=== PATIENT | male | born 1945 | race Caucasian/White ===

== ENCOUNTER 2017-07-06 21:10 | Emergency (ER) | payer OTHER, MEDICARE ==
[~2017-07-06] VITALS: Ht 172.7 cm; Wt 88.5 kg
[2017-07-06 21:41] LABS: ABSOLUTE BASOPHIL COUNT 0 /CUMM (0.0-0.2); ABSOLUTE EOSINOPHIL COUNT 0.3 /CUMM (0.0-0.7); ABSOLUTE LYMPH COUNT 2.1 /CUMM (1.2-3.4); ABSOLUTE MONOCYTE COUNT 0.8 /CUMM (0.10-0.60); BASOPHIL % 0.4 % (0.0-2.0); EOSINOPHIL % 2.8 % (0-5); GRANULOCYTE % 67.9 % (42.2-75.2); HEMATOCRIT 46.3 % (42-52); MEAN CORPUSCULAR HGB 30.6 PG (27.0-31.0); MEAN CORPUSCULAR HGB CONC 33.6 G/DL (33.0-37.0); MEAN PLATELET VOLUME 8.6 FL (7.4-10.4); PLATELET COUNT 244 /CUMM (130-400); RBC DISTRIBUTION WIDTH 13.6 % (11.5-14.5); RED BLOOD CELL CT 5.09 /CUMM (4.70-6.10); WHITE BLOOD CELL COUNT 10.2 /CUMM (4.8-10.8)
--- NOTE | 2017-07-06 23:06 | ED CARDIAC/CP/PALPITATIONS ---
History of Present Illness General Chief Complaint: Chest Pain Stated Complaint: " CHEST PAIN ALLAFTERNOON, BP 180/80" Source: patient, family, old records Exam Limitations: no limitations Vital Signs & Intake/Output Vital Signs & Intake/Output Vital Signs Date Time Temp Pulse Resp B/P B/P Pulse O2 O2 Flow FiO2 Mean Ox Delivery Rate 07/06 2319 70 20 172/90 96 Room Air 07/06 2114 97.9 83 20 181/85 97 Room Air ED Intake and Output 07/07 0000 07/06 1200 Intake Total Output Total Balance Patient 195 lb Weight Allergies Coded Allergies: No Known Allergies (07/06/17) Reconcile Medications Hydrochlorothiazide 25 MG TABLET 1 TAB PO DAILY htn Triage Note: PT TO TRIAGE C/O CP SINCE THIS AFTERNOON S/P EATING TUNA FISH SANDWICH, BUT PAIN HAS PERSISTED. DENIES RADIATING PAIN, DENIES SOB. PT ALSO C/O HIGH BLOOD PRESSURE AT HOME. BP 181/85 IN TRIAGE. DENIES CARDIAC HX. Triage Nurses Notes Reviewed? yes Onset: Abrupt Duration: day(s): (1), constant Timing: recent history Quality/Severity: mild, aching, burning Location: central Radiation: no radiation Activities at Onset: eating Nitro Today/Relief: no nitro taken today Aspirin Today: no aspirin today Associated Symptoms: denies HPI: 72-year-old male presents to the ER for evaluation complaining of central nonradiating chest pain associated with frequent belching since approximately 1: 00 this afternoon after eating a tuna fish sandwich. He denies radiation of pain shortness of breath or pain with inspiration. No nausea no vomiting. He is not taken anything for his symptoms. He took his blood pressure was elevated and presents to the ER. He did have soup for dinner which she states after eating soup made the symptoms worse. No back pain and arm pain abdominal pain. He denies tobacco or alcohol use. No history of cardiac disease. Symptoms are not worse with exertion. (Christen AMAYA,Manjeet) Past History Travel History Traveled to [place] past 21 day No Medical History Any Pertinent Medical History? 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 No (Manjeet Moreira) Review of Systems Review of Systems Constitutional: Reports: see HPI. Comments Review of systems: See HPI, All other systems negative. Constitutional, no chills no fever, HEENT: no sore throat no congestion Cardiovascular: chest pain , no palpitation Skin: no rashes, no change in skin Respiratory: No dyspnea no cough no sputum no hemoptysis GI: No nausea no vomiting, no diarrhea, no bloating/constipation Muscle skeletal: No joint pain, no back pain, no neck pain, Neurologic: , no headache Heme/endocrine: No bruising Immunology: No lymphadenopathy (Manjeet Moreira) Physical Exam Physical Exam General Appearance: well developed/nourished, no apparent distress, alert, awake , comfortable Cardiovascular: regular rate/rhythm Comments: Well-developed well-nourished person in no acute distress HEENT: Normal EENT exam; PERRL, EOMI. HEAD is atraumatic. moist mucous membranes. Neck: Supple, normal range of motion Back: Nontender, no CVA tenderness. Full range of motion Cardiovascular: Regular rate and rhythms no murmurs Respiratory: Chest nontender.There were no bony deformities, no asymmetry. No respiratory distress. Patient speaking in full complete sentences. Breath sounds clear to auscultation bilaterally: NO W/R/R Abdomen: Soft, nontender nondistended, no appreciable organomegaly. Normal bowel sounds. No rebound/guarding, No ascites. Extremity: No edema, full range of motion of extremities Neuro: Alert oriented x3, motor sensory normal, There were no obvious focal neurologic abnormalities. Skin: No appreciable rash on exposed skin, skin is warm and dry. Psych: Mood and affect is normal, memory and judgment is normal. Core Measures ACS in differential dx? Yes CVA/TIA Diagnosis No Sepsis Present: No Sepsis Focused Exam Completed? No (Manjeet Moreira) Progress Differential Diagnosis: AMI, atrial fibrillation, myocarditis, pericarditis, pneumonia, pneumothorax, PUD/GERD, unstable angina Plan of Care: Orders Procedure Date/time Status TROPONIN LEVEL 07/070 Complete EKG 07/07 29 Active TROPONIN LEVEL 07/07 2123 Complete COMPREHENSIVE METABOLIC PANEL 07/07 2123 Complete CBC WITHOUT DIFFERENTIAL 07/07 2123 Complete EKG 07/06 2112 Active Laboratory Tests 07/07/17 0017: Troponin I < 0.01 07/06/172128: Anion Gap 10, Estimated GFR 59 L, BUN/Creatinine Ratio 13.3, Glucose 144 H, Calcium 9.3, Total Bilirubin 0.5, AST 21, ALT 24, Alkaline Phosphatase 43, Troponin I < 0.01, Total Protein 6.6, Albumin 3.6, Globulin 3.0, Albumin/ Globulin Ratio 1.2, CBC w Diff NO MAN DIFF REQ, RBC 5.09, MCV 91.0, MCH 30.6, MCHC 33.6, RDW 13.6, MPV 8.6, Gran % 67.9, Lymphocytes % 20.7, Monocytes % 8.2, Eosinophils % 2.8, Basophils % 0.4, Absolute Granulocytes 7.0 H, Absolute Lymphocytes 2.1, Absolute Monocytes 0.8 H, Absolute Eosinophils 0.3, Absolute Basophils 0 Patient medicated with GI cocktail labs ordered old records reviewed Review evaluation patient reports symptoms have migrated to the epigastric region GI cocktail however it is improved discussed with the plan of care will get a repeat troponin EKG at 12:30 otherwise resting in no acute distress at this time. Patient frequently belching in the room 110 I discussed with the patient and his repeat labs he denies any chest pain at this time, he continues to belch discussed with him plan of care he will follow- up with cardiology primary care prescription for hydrochlorothiazide will be provided. Diagnostic Imaging: Viewed by Me: Radiology Read. Discussed w/RAD: Radiology Read. Radiology Impression: PATIENT: GILA YUNG PRESENT AGE: 72 PATIENT ACCOUNT NO: [id number] : 44 LOCATION: [facility] ORDERING PHYSICIAN: Manjeet AMAYA SERVICE DATE: 07/06/174 EXAM TYPE: RAD - XRY- PORTABLE CHEST XRAY EXAMINATION: XR PORTABLE CHEST CLINICAL INFORMATION: Chest pain COMPARISON: None TECHNIQUE: Portable frontal view of the chest was obtained. FINDINGS: The lungs are well expanded. There is no focal consolidation , edema, or effusion. No pneumothorax. The cardiomediastinal silhouette is within normal limits. No acute osseous abnormality. IMPRESSION: No acute pulmonary findings. DICTATED BY: Santy BOWLING,Shalom DATE/TIME DICTATED:2336 THREAD MARKER:RAD.[email or web address] DATE/TIME TRANSCRIBED:07/06/172336 CONFIDENTIAL, DO NOT COPY WITHOUT APPROPRIATE AUTHORIZATION. <Electronically signed in Other Vendor System> SIGNED BY: Santy BOWLING,Shalom 07/06/17 7298 Initial ED EKG: normal intervals, normal p-waves, normal QRS complex, normal sinus rhythm Repeat EKG: unchanged Rhythm Strip: normal sinus rhythm (Manjeet Moreira) Departure Departure Time of Disposition: 108 Disposition: HOME OR SELF CARE Condition: Stable Clinical Impression Primary Impression: Atypical chest pain Referrals: Pelon BOWLING,Tray Armstrong MD,Marcello Morrow (PCP/Family) Additional Instructions: Hydrochlorothiazide as directed. Follow-up with frozen meat cutter Dr. luo. Ona diet clear liquids advance as tolerated. Return to the emergency room anytime sooner with any concerns. Departure Forms: Customer Survey General Discharge Information Prescriptions: Current Visit Scripts Hydrochlorothiazide 1 TAB PO DAILY #30 TAB (Manjeet Moreira) PA/TAIL EDGER Co-Sign Statement Statement: ED Attending supervision documentation- [X] I saw and evaluated the patient. I have also reviewed all the pertinent lab results and diagnostic results. I agree with the findings and the plan of care as documented in the PA's/TAIL EDGER's documentation. [X] I have reviewed the ED Record and agree with the PA's/TAIL EDGER's documentation. [] Additions or exceptions (if any) to the PAs/TAIL EDGER's note and plan are summarized below: [] (Lalitha BOWLING,Italo Mtz) Critical Care Note Critical Care Note Critical Care Time: non-applicable (Manjeet Moreira)
[2017-07-06 23:19] VITALS: BP 172/90
--- NOTE | 2017-07-06 23:41 | RADIOLOGY REPORT ---
EXAMINATION: XR PORTABLE CHEST CLINICAL INFORMATION: Chest pain COMPARISON: None TECHNIQUE: Portable frontal view of the chest was obtained. FINDINGS: The lungs are well expanded. There is no focal consolidation, edema, or effusion. No pneumothorax. The cardiomediastinal silhouette is within normal limits. No acute osseous abnormality. IMPRESSION: No acute pulmonary findings.
[2017-07-07] MEDS ORDERED: HYDROCHLOROTHIA25 M1 PO (01:10)
== END 2017-07-07 01:35 ==
LOC: ERH 21:10
PROVIDERS: Emergency Medicine
DX: R07.89 Other chest pain (principal)
CPT/HCPCS: 71045; 93005; 93010